=== PATIENT | female | born 1995 | race Two or more races ===

== ENCOUNTER → 2025-02-02 | Outpatient (CLI) | payer OTHER ==
[2025-02-02 13:21] LABS: HEMOGLOBIN 13.2 g/dl (12.0-15.5); MEAN CORPUSCULAR HEMOGLOBIN 27.2 pg (27.0-33.0); MEAN CORPUSCULAR HGB CONC 31.4 g/dl (32.0-36.5); MEAN CORPUSCULAR VOLUME 86.6 fl (80.0-96.0); PLATELET COUNT, AUTOMATED 339 10^3/uL (150-450); RED BLOOD COUNT 4.85 10^6/uL (4.00-5.40)
[2025-02-02 14:26] LABS: Trichomonas vaginalis (AMP) NOT DETECTED (NEGATIVE)
[2025-02-02 14:49] LABS: GC DNA AMPLIFICATION NEGATIVE (NEGATIVE)
[2025-02-02 16:09] LABS: HIV 1&2 SCREEN NEGATIVE (NEGATIVE)
[2025-02-02 16:16] LABS: HEPATITIS C VIRUS ABY INDEX 0.06 INDEX (<0.8)
== END ==
LOC: M PLALAB 10:43
PROVIDERS: ATTEND Advanced Practice Midwife
DX: Z34.81 Encounter for supervision of other normal pregnancy, first trimester (principal)

== ENCOUNTER → 2025-02-02 | Outpatient (REF) | payer OTHER | LOC: M PLALAB 10:24 | PROVIDERS: ATTEND Advanced Practice Midwife | DX: Z53.9 Procedure and treatment not carried out, unspecified reason (principal) ==

== ENCOUNTER → 2025-05-18 | Outpatient (CLI) | payer OTHER | LOC: M WHC 09:30 | PROVIDERS: ATTEND Nurse Practitioner Family | DX: O09.293 Supervision of pregnancy with other poor reproductive or obstetric history, third trimester (principal); Z3A.30 30 weeks gestation of pregnancy ==

== ENCOUNTER → 2025-05-18 | Outpatient (CLI) | payer OTHER ==
[2025-05-18 13:56] LABS: PLATELET COUNT, AUTOMATED 331 10^3/uL (150-450)
[2025-05-18 14:28] LABS: GLUCOSE CHALLENGE TEST 1 HOUR 83 MG/DL (LESS THAN 140)
[2025-05-18 14:58] LABS: HIV 1&2 SCREEN NEGATIVE (NEGATIVE)
[2025-05-18 15:04] LABS: Trichomonas vaginalis (AMP) NOT DETECTED (NEGATIVE)
[2025-05-18 15:06] LABS: HEPATITIS C VIRUS ABY INDEX < 0.02 INDEX (<0.8)
[2025-05-18 15:27] LABS: GC DNA AMPLIFICATION NEGATIVE (NEGATIVE)
== END ==
LOC: M PLALAB 10:10
PROVIDERS: ATTEND Nurse Practitioner Family
DX: Z34.82 Encounter for supervision of other normal pregnancy, second trimester (principal)

== ENCOUNTER → 2025-06-20 | Outpatient (CLI) | payer OTHER | LOC: M RAD 07:19 | PROVIDERS: ATTEND Nurse Practitioner Family | DX: O26.843 Uterine size-date discrepancy, third trimester (principal) ==

== ENCOUNTER → 2025-06-29 | Outpatient (CLI) | payer OTHER | LOC: M WHC 12:16 | PROVIDERS: ATTEND Nurse Practitioner Family | DX: O36.5990 Maternal care for other known or suspected poor fetal growth, unspecified trimester, not applicable or unspecified (principal) ==

== ENCOUNTER → 2025-07-03 | Outpatient (REF) | payer OTHER | LOC: M SFHCWAGY 15:00 | PROVIDERS: ATTEND Nurse Practitioner Family | DX: Z36.85 Encounter for antenatal screening for Streptococcus B (principal); Z3A.37 37 weeks gestation of pregnancy ==

== ENCOUNTER → 2025-07-06 | Outpatient (CLI) | payer OTHER | LOC: M WHC 12:28 | PROVIDERS: ATTEND Nurse Practitioner Family | DX: O36.5990 Maternal care for other known or suspected poor fetal growth, unspecified trimester, not applicable or unspecified (principal) ==

== ENCOUNTER 2025-07-20 22:44 | Emergency (ER) | payer OTHER ==
[2025-07-20] MEDS ORDERED: PREN1TAB11 PO (23:26)
[2025-07-20] MEDS ORDERED: GNP250TA9 PO (23:27)
== END 2025-07-21 02:16 | disposition left against medical advice (07) ==
LOC: M ED 22:44
DX: Z53.21 Procedure and treatment not carried out due to patient leaving prior to being seen by health care provider (principal)

== ENCOUNTER 2025-07-20 22:52 | Inpatient (IN) | payer OTHER ==
[~2025-07-20] VITALS: Ht 157.5 cm; Wt 74.8 kg
[2025-07-20 23:15] VITALS: BP 123/86
[2025-07-20] MEDS ORDERED: PREN1TAB11 PO (23:26)
[2025-07-20] MEDS ORDERED: GNP250TA9 PO (23:27)
[2025-07-20] MEDS ORDERED: HOME MED LIST COMPLETE! XX SCH (23:30)
[2025-07-21] VITALS (14 sets, daily range): BP systolic 108–144; BP diastolic 52–86; O2SAT 99
[2025-07-21] MEDS ORDERED: LIDOCAINE 1% MDV 20 ML VIAL INFIL PRN (01:05)
[2025-07-21] MEDS: PENICILLIN G POTASSIUM 5 MU IV 5 MU in DEXTROSE 5% (D5W) MINI-BAG PLU 100 ML IV STA (01:54)
[2025-07-21 02:10] LABS: PLATELET COUNT, AUTOMATED 262 10^3/uL (150-450)
[2025-07-21 03:24] LABS: HIV 1&2 SCREEN NEGATIVE (NEGATIVE)
[2025-07-21 03:31] LABS: HEPATITIS C VIRUS ABY INDEX < 0.02 INDEX (<0.8)
[2025-07-21] MEDS: PEN G POT 3,000,000 UNIT/50 ML 3,000,000 UNIT in IV 1 EA IV SCH (06:00)
[2025-07-21] MEDS: LR 1,000 ML IV SCH (10:13)
[2025-07-21] MEDS: OXYTOCIN DRIP 30 UNITS in IV 1 EA IV SCH (10:13)
[2025-07-21] MEDS: OXYTOCIN DRIP 30 UNITS in IV 1 EA IV PRN (13:21)
[2025-07-21] MEDS ORDERED: CALCIUM CARBONATE 500 MG CHEW U/D PO PRN (13:35)
[2025-07-21] MEDS ORDERED: DIBUCAINE 1% OINTMENT 30 GM TOP PRN (13:35)
[2025-07-21] MEDS ORDERED: ACETAMINOPHEN 500 MG TAB PO PRN (13:35)
[2025-07-21] MEDS ORDERED: RHOGAM 300MCG (1500IU) INJ IM SCH (13:35)
[2025-07-21] MEDS ORDERED: ACETAMINOPHEN 325 MG TAB PO PRN (13:35)
[2025-07-21] MEDS ORDERED: ANUSOL HC CREAM 30 GM TOP PRN (13:35)
[2025-07-21] MEDS ORDERED: METHYLERGONOVINE MALEATE 0.2 MG TAB PO PRN (13:35)
[2025-07-21] MEDS: IBUPROFEN 600 MG TAB PO PRN (16:08)
[2025-07-21] MEDS: IBUPROFEN 800 MG TAB PO PRN (22:33)
[2025-07-22 05:58] VITALS: BP 111/56; O2SAT 100
[2025-07-22] MEDS: PRENATAL VITAMINS CHEWABLE TABLET PO SCH (09:00)
[2025-07-22] MEDS: DOCUSATE SODIUM 100 MG CAPSULE PO PRN (10:23)
[2025-07-23] MEDS ORDERED: MEASLES,MUMPS,RUBELLA VACCINE INJ (MMR-II) SC.IMMUN ONE (09:00)
== END 2025-07-22 18:40 | disposition home or self-care (01) | DRG 807 ==
LOC: M LDO 22:52 → M LDI 07-21 01:01 → M OBS 07-21 15:14
PROVIDERS: ADMIT Specialist; ATTEND Advanced Practice Midwife
PROC: 10E0XZZ Delivery of Products of Conception, External Approach (ICD-10-PCS; principal; 2025-07-21)
DX: O80 Encounter for full-term uncomplicated delivery (principal); Z37.0 Single live birth; Z3A.37 37 weeks gestation of pregnancy